=== PATIENT | male | born 1995 | race Caucasian/White ===

== ENCOUNTER 2022-09-20 12:35 | Day surgery (SDC) | payer BC, SELFPAY ==
[2022-09-20] VITALS (8 sets, daily range): BP systolic 129–151; BP diastolic 57–82; PULSE 85–103; RESP 14–25; TEMP 36.7–37.2; O2SAT 87–100; BMI 29.5
--- NOTE | 2022-09-20 | PATH_ITS ---
[facility] Accession Number: [id number] No. of containers..01 Tissue . 01 Material submitted: . appendix - APPENDIX . 01 Diagnosis: Appendix, Appendectomy: Acute appendicitis and periappendicitis. [facility] 09/24/2022 1013 Local . 01 Electronically signed: . Jane Anthony MD, Pathologist NPI- [id number] . 01 Gross description: . The specimen is received in formalin labeled with the patient's name, , and appendix consists of a vermiform appendix measuring 6.4 cm in length by 1.3 cm in diameter with a red-brown external surface with gamez adherent material consistent with exudate. The margin is received closed with jennifer, which are removed, and the margin is inked blue while the remaining external surface is inked orange. The lumen contains a small amount of brown semi-solid fecal material and averages 0.3 m in diameter. The lazo have multiple diverticula measuring up to 0.7 cm in greatest dimension with the largest containing mucoid material. Two areas of possible perforations are identified with no discrete lesions. Topology Teacher sections to include the margin, one-half of the bisected distal tip, mucoid diverticula, and two possible perforations are submitted in cassettes A1-A2. ([id number]) /MRV 09/22/2022 1527 Local . 01 Pathologist provided ICD-10: K35.80 . 01 CPT . 257712 Specimen Comment: A courtesy copy of this report has been sent to [phone] Performed at: [address] [facility], [place], [place] [id number] MD Aj Carver MD Phone: [phone]
--- NOTE | 2022-09-20 12:46 | ED.ABDPAIN ---
HPI - Abdominal Pain General Chief Complaint: Abdominal Pain Stated Complaint: abd lower right pain T-3 Time Seen by Provider: 09/20/22 12:46 Source: patient Mode of arrival: Ambulatory History of Present Illness HPI narrative: 27-year-old male nonsmoker with no chronic medical history presents with a chief complaint of gradually worsening right lower quadrant pain over the past 3 days. He states initially there was gradual onset and generalized abdominal discomfort and over the past few days the pain has migrated to the right lower quadrant and is much more intense and persistent. He denies fever or chills. He is nauseated and has developed a poor appetite. He has not eaten since yesterday because he is just not hungry. His pain is worse when he moves and improves with rest. He denies dysuria, frequency or urgency. He denies change in bowel habits. He denies any history of the same. He has never had an abdominal surgery. Related Data Allergies Allergy/AdvReac Type Severity Reaction Status Date / Time No Known Drug Allergies Allergy Verified 09/20/22 12:44 Review of Systems Review of Systems Narrative: GENERAL: see HPI HEENT: Denies sinus pain, ear pain, sore throat, difficulty swallowing, dizziness. RESPIRATORY: Denies dyspnea, cough, wheezing, hemoptysis, sputum. CARDIOVASCULAR: Denies chest pain, palpitations, orthopnea, edema, GASTROINTESTINAL: see HPI : Denies dysuria, frequency, incontinence, hematuria, urinary retention. MUSCULOSKELETAL: denies weakness, joint pain, or bony pain SKIN: Denies rash, skin lesions, or other NEUROLOGIC: Denies weakness, headache, numbness, change in speech, confusion, seizures, incoordination. PSYCHIATRIC: No concerning psychosocial issues. Patient History Social History Smoking Status: Never smoker Smoking Status: Never smoker alcohol intake frequency: a few times a month Substance Use Type: does not use Exam Narrative Exam Narrative: GENERAL: [27] year old patient appears stated age. Well-developed patient, in mild distress. obviously uncomfortable HEAD: Atraumatic. Normocephalic. EYES: Pupils equal round and reactive. Extraocular motions intact. No scleral icterus. No injection or drainage. ENT: Nose without bleeding, purulent drainage. Throat without erythema, tonsillar hypertrophy or exudate. Airway patent. NECK: Trachea midline. Non tender CARDIOVASCULAR: Regular rate and rhythm without murmurs, gallops, or rubs. RESPIRATORY: Clear to auscultation. Breath sounds equal bilaterally. No wheezes, rales, or rhonchi. GASTROINTESTINAL: Abdomen soft, significant tenderness in the right lower quadrant with localized peritonitis, no rebound, bowel sounds slightly decreased. Negative heel tap or obturator , positive Rovsing's EXTREMITIES: No edema or joint tenderness. BACK: Nontender without deformity or crepitance. No flank tenderness. NEURO: AOx3. SKIN: No rash or erythema of visible areas Initial Vital Signs Initial Vital Signs: Vital Signs Temperature 99.0 F 09/20/22 12:42 Pulse Rate 102 H 09/20/22 12:42 Respiratory Rate 18 09/20/22 12:42 Blood Pressure 143/82 H 09/20/22 12:42 Pulse Oximetry 98 09/20/22 12:42 Oxygen Delivery Method Room Air 09/20/22 12:42 Course Orders Ordered: ED Orders 09/20/22 12:47 CT abdomen pelvis w con Stat 09/20/22 12:55 Complete Blood Count AUTO DIFF Stat Comprehensive Metabolic Panel Stat 09/20/22 13:36 Urine Microscopic Stat Lactated Ringer's (Lactated Ringers) 1,000 mls @ 42 mls/hr IV CONT JOAQUINA Last Admin: 09/20/22 15:36 Dose: 42 mls/hr Documented By: YONY Discontinued Medications Hydromorphone HCl (Hydromorphone 0.5 Mg Inj) 0.5 mg IV NOW ONE Stop: 09/20/22 12:47 Last Admin: 09/20/22 12:53 Dose: 0.5 mg Documented By: MEÑO Hydromorphone HCl (Hydromorphone 1 Mg Inj) 1 mg IV NOW ONE Stop: 09/20/22 13:44 Last Admin: 09/20/22 13:49 Dose: 1 mg Documented By: YONY Sodium Chloride (Normal Saline 0.9%) 1,000 mls @ 1,000 mls/hr IV BOLUS ONE Stop: 09/20/22 13:45 Last Infusion: 09/20/22 14:32 Dose: 0 mls/hr Documented By: Admin: 09/20/22 12:54 Dose: 1,000 mls/hr Documented By: MEÑO Piperacillin Sod/Tazobactam (Sod 4.5 gm/ Sodium Chloride) 100 mls @ 200 mls/hr IV NOW ONE Stop: 09/20/22 14:20 Last Infusion: 09/20/22 15:07 Dose: 0 mls/hr Documented By: Admin: 09/20/22 14:27 Dose: 200 mls/hr Documented By: YONY Ondansetron HCl (Ondansetron 4 Mg/2 Ml Inj) 4 mg IV NOW ONE Stop: 09/20/22 12:47 Last Admin: 09/20/22 14:01 Dose: Not Given Documented By: YONY Vital Signs Vital signs: Vital Signs - 8 hr 09/20/22 12:42 09/20/22 14:09 Temperature 99.0 F Pulse Rate 102 H 100 H Respiratory Rate 18 14 Blood Pressure 143/82 H 151/65 H Pulse Oximetry 98 100 Oxygen Delivery Method Room Air Room Air MDM - Abdominal Pain Lab Data 09/20/22 12:55 09/20/22 12:55 Labs: Lab Results 09/20/22 09/20/22 09/20/22 Range/Units 12:55 12:55 13:36 WBC 15.2 H (4.5-11.0) X10^3/uL RBC 4.75 (4.5-5.9) X10^6/uL Hgb 14.8 (13.5-17.5) g/dL Hct 42.8 (41-53) % MCV 90.1 (80-100) fL MCH 31.2 (26-34) PG MCHC 34.7 (30-36) % RDW 12.8 (11.6-14.8) % Plt Count 290 (150-400) X10^3/uL Neut % (Auto) 75.0 (50-75) % Lymph % (Auto) 14.8 L (25-40) % Mcintosh % (Auto) 9.4 (3-14) % Eos % (Auto) 0.4 L (2-4) % Baso % (Auto) 0.4 (0-2) % Neut # (Auto) 23991 H (3778-1101) /uL Lymph # (Auto) 2300 (5949-0029) /uL Mcintosh # (Auto) 1400 H (0-900) /uL Eos # (Auto) 100 (0-450) /uL Baso # (Auto) 100 (0-100) /uL Sodium 138 (137-145) mmol/L Potassium 3.6 (3.4-5.1) mmol/L Chloride 100 (98-107) mmol/L Carbon Dioxide 26 (22-32) mmol/L BUN 12 (9-20) mg/dL Creatinine 1.05 (0.66-1.25) mg/dL Estimated GFR > 60 (>60) mL/min BUN/Creatinine Ratio 11.4 (6-22) Glucose 96 (70-100) mg/dL Calcium 9.3 (8.4-10.2) mg/dL Total Bilirubin 0.9 (0.2-1.3) mg/dL AST 22 (17-59) IU/L ALT 24 (<50) IU/L Alkaline Phosphatase 74 (38-126) U/L Total Protein 8.2 (6.3-8.2) g/dL Albumin 4.6 (3.5-5.0) g/dL Globulin 3.6 (1.7-4.1) g/dL Albumin/Globulin Ratio 1.3 (1.0-2.8) Urine RBC None seen (0-5/HPF) Urine WBC None seen (0-5/HPF) Ur Squamous Epith Cells None seen (0-5/HPF) Urine Bacteria None seen (None) Ur Culture Indicated? Cult not indicated Micro UA Comment Microscopic normal Point of care testing: Urine Dip Bedside Urine Glucose Negative Bedside Urine Bilirubin - Negative Bedside Urine Ketone +++ 80 Urine Specific [place] 1.005 Bedside Urine Occult Blood - Negative Bedside Urine pH 7.0 Bedside Urine Protein - Negative Bedside Urine Urobilinogen - Negative Bedside Urine Nitrite - Negative Bedside Urine Leukocytes - Negative Esterase MDM Narrative Medical decision making narrative: 27-year-old male with classic presentation of appendicitis with 3 days of worsening right lower quadrant pain, nausea and anorexia. He has localized peritoneal signs and an elevated white blood cell count. Urine is clear abdominal CT demonstrates appendicitis in the absence of perforation, abscess or appendicolith. Patient given fluids, pain control, 1st round of antibiotics. Discussed with on-call General surgery, Dr. Chandra, he will assume care of the patient with likely plan for OR tonight. Patient and family understand and agree with diagnosis and plan Discharge Plan Departure Patient Disposition: Admitted As Inpatient Clinical Impression: Acute appendicitis Admit Date/Time: 09/20/22 14:44 Admit Provider: Micky Chandra
--- NOTE | 2022-09-20 12:47 | DI.CT.S_ITS ---
PROCEDURE: CT ABDOMEN PELVIS W CON INDICATIONS: worsening RLQ pain, anorexia, appy? TECHNIQUE: After the administration of intravenous contrast, axial sections acquired from the lung bases to the pubic symphysis. Coronal and sagittal reformats were performed. For radiation dose reduction, the following was used: automated exposure control, adjustment of mA and/or kV according to patient size. COMPARISON: None. FINDINGS: Image quality: Excellent. Lung bases: Unremarkable. Heart: No significant findings. ABDOMEN: Liver: Unremarkable. Gallbladder: Unremarkable. Biliary ducts: Unremarkable. Pancreas: Unremarkable. Spleen: Unremarkable. Adrenal Glands: Unremarkable. Kidneys and Ureters: Unremarkable. Stomach and Bowel: The appendix is significantly inflamed with wall thickening and overall 1.4 cm diameter. Vigorous periappendiceal phlegmon present without organized abscess. No appendiolith present. Peritoneum: No abnormal intraperitoneal fluid. No free air. Ventral Wall: No hernias. Abdominal Nodes: No retroperitoneal or mesenteric adenopathy by size criteria. Vessels: Aorta and inferior vena cava are normal in size. PELVIS: Pelvic Organs: Unremarkable. Bladder: Unremarkable. Pelvic Nodes: No enlarged lymph nodes. Miscellaneous: No hernias are seen. Bones: Unremarkable. IMPRESSION: Acute appendicitis with vigorous periappendiceal inflammatory change but no evidence of organized abscess or free air. No obstruction. Small amount of reactive free fluid in the pelvis Note: Critical results were discussed with the patient's nurse in the ER at 01:19 PM [place] time on 09/20/22 Approved by: Madi Perez M.D. on 09/20/2022 at 13:20
[2022-09-20] MEDS: HYDROMORPHONE 0.5 MG INJ IV (12:53)
[2022-09-20] MEDS: SODIUM CHLORIDE 0.9% 1,000 ML 1000 ML IV (12:54)
[2022-09-20 13:05] LABS: Add Manual Diff / Slide Review NO; Basophils Absolute Auto 100 /uL (0-100); Basophils Percent Auto 0.4 % (0-2); Eosinophils Absolute Auto 100 /uL (0-450); Eosinophils Percent Auto 0.4 % (2-4); Hematocrit 42.8 % (41-53); Hemoglobin 14.8 g/dL (13.5-17.5); Lymphocytes Absolute Auto 2300 /uL (1100-4500); Lymphocytes Percent Auto 14.8 % (25-40); Mean Corpuscular HGB Conc 34.7 % (30-36); Mean Corpuscular Hemoglobin 31.2 PG (26-34); Mean Corpuscular Volume 90.1 fL (80-100); Monocytes Absolute Auto 1400 /uL (0-900); Monocytes Percent Auto 9.4 % (3-14); Neutrophils Absolute Auto 11300 /uL (1500-7000); Platelet Count 290 X10^3/uL (150-400); Red Blood Cell Count 4.75 X10^6/uL (4.5-5.9); Red Cell Distribution Width 12.8 % (11.6-14.8); White Blood Cell Count 15.2 X10^3/uL (4.5-11.0)
[2022-09-20 13:22] LABS: Alanine Aminotransferase 24 IU/L (<50); Albumin 4.6 g/dL (3.5-5.0); Albumin Globulin Ratio 1.3 (1.0-2.8); Alkaline Phosphatase 74 U/L (38-126); Aspartate Aminotransferase 22 IU/L (17-59); BUN Creatinine Ratio 11.4 (6-22); Bilirubin Total 0.9 mg/dL (0.2-1.3); Blood Urea Nitrogen 12 mg/dL (9-20); Calcium 9.3 mg/dL (8.4-10.2); Carbon Dioxide 26 mmol/L (22-32); Chloride 100 mmol/L (98-107); Estimated Glomerular Filt Rate > 60 mL/min (>60); Globulin 3.6 g/dL (1.7-4.1); Glucose 96 mg/dL (70-100); HEMOLYSIS < 15 (0-50); Potassium 3.6 mmol/L (3.4-5.1); Sodium 138 mmol/L (137-145); Total Protein 8.2 g/dL (6.3-8.2)
[2022-09-20] MEDS: HYDROMORPHONE 1 MG INJ IV (13:49)
[2022-09-20 14:19] LABS: Bacteria Urine None Seen; Culture Indicated Urine Cult Not Indicated; RBC Urine None Seen (0-5/HPF); Squamous Epithelial Cell Urine None Seen (0-5/HPF); Urine Comments Microscopic Normal; WBC Urine None Seen (0-5/HPF)
[2022-09-20] MEDS: PIPERACILLIN/TAZO 4.5 GM in SODIUM CHLORIDE 0.9% 100 ML IV (14:27)
[2022-09-20] MEDS: LACTATED RINGERS 1,000 ML 42 ML IV ×2 (15:36→17:57)
--- NOTE | 2022-09-20 15:57 | SUR.OPER ---
Supine on padded OR bed, head on pillow, arms padded and tucked at sides, legs uncrossed, safety belt at thigh, tape over blanket over lower legs .
--- NOTE | 2022-09-20 16:07 | P.HP_ITS ---
History of Present Illness History of Present Illness Date Patient Seen: 09/20/22 Time Patient Seen: 16:07 Chief complaint: abd lower right pain T-3 Narrative: 27-year-old healthy man admitted for acute appendicitis. Developed abdominal pain generalized in the epigastric region 2 days ago. It is migrated now down to the right lower quadrant. Presented to the emergency department at [facility] today where he was afebrile mildly tachycardic white blood cell count 15 the remainder of his laboratories are within normal limits. CT abdomen pelvis demonstrates a inflamed appendix dilated with periappendiceal stranding no abscess or free air. No prior abdominal surgery. [facility] Social History household members: spouse Smoking Status: Never smoker Meds Home Medications and Allergies Home Medications Medication Instructions Recorded Confirmed Type acetaminophen 325 mg capsule 650 mg PO QID PRN pain #60 caps 09/20/22 Rx (Tylenol) ibuprofen 200 mg tablet 400 mg PO Q6H #60 tabs 09/20/22 Rx oxycodone 5 mg tablet 5 mg PO Q6H PRN pain #10 tabs 09/20/22 Rx Allergies Allergy/AdvReac Type Severity Reaction Status Date / Time No Known Drug Allergies Allergy Verified 09/20/22 16:06 Exam Vital Signs (past 8 hours): - 09/20/22 12:42 09/20/22 14:09 09/20/22 16:00 Temperature 99.0 F 98.4 F Pulse Rate 102 H 100 H 103 H Respiratory Rate 18 14 16 Blood Pressure 143/82 H 151/65 H 145/75 H Pulse Oximetry 98 100 98 Oxygen Delivery Method Room Air Room Air Room Air Oxygen Delivery Method Room Air Narrative Exam Narrative: General adult man alert oriented no acute distress Chest nonlabored respiration Abdomen tender right lower quadrant. No peritonitis Extremities warm well perfused. Objective Labs 09/20/22 12:55 09/20/22 12:55 Labs: Laboratory Results - last 24 hr 09/20/22 09/20/22 09/20/22 12:55 12:55 13:36 WBC 15.2 H RBC 4.75 Hgb 14.8 Hct 42.8 MCV 90.1 MCH 31.2 MCHC 34.7 RDW 12.8 Plt Count 290 Neut % (Auto) 75.0 Lymph % (Auto) 14.8 L [place] % (Auto) 9.4 Eos % (Auto) 0.4 L Baso % (Auto) 0.4 Neut # (Auto) 37571 H Lymph # (Auto) 2300 [place] # (Auto) 1400 H Eos # (Auto) 100 Baso # (Auto) 100 Sodium 138 Potassium 3.6 Chloride 100 Carbon Dioxide 26 BUN 12 Creatinine 1.05 Estimated GFR > 60 BUN/Creatinine Ratio 11.4 Glucose 96 Calcium 9.3 Total Bilirubin 0.9 AST 22 ALT 24 Alkaline Phosphatase 74 Total Protein 8.2 Albumin 4.6 Globulin 3.6 Albumin/Globulin Ratio 1.3 Urine RBC None seen Urine WBC None seen Ur Squamous Epith Cells None seen Urine Bacteria None seen Ur Culture Indicated? Cult not indicated Micro UA Comment Microscopic normal Assessment & Plan Assessment and plan (1) Acute appendicitis: Status: Acute Assessment & Plan narrative: 27-year-old healthy man with symptoms and radiographic findings consistent with acute appendicitis. I reviewed his CT abdomen pelvis personally which demonstrates an inflamed dilated appendix without abscess. We discussed management including medical therapy with antibiotic or surgical intervention. Following discussion he likes to proceed with laparoscopic appendectomy. Overview of the operation was discussed. Operative risks including infection, hemorrhage, damage to surrounding structures, conversion to open discussed. Questions have been answered he is in agreement with this plan. He provides his written and verbal consent to proceed.
--- NOTE | 2022-09-20 16:10 | PM.OP.1 ---
Operative Date/Time/Diagnoses Date of procedure: 09/20/22 Time of procedure: 16:10 Pre-op diagnosis: Acute appendicitis Post-op diagnosis: same Procedure & Clinicians Procedure: Laparoscopic appendectomy Same procedure as scheduled: Yes Indications: 27-year-old man with symptoms and radiographic findings consistent with acute uncomplicated appendicitis. Surgeon: Micky Chandra Click Yes if Unassisted: Yes Anesthesia Type: General Operative Notes Findings: Acutely inflamed appendix non perforated. Specimen(s): other (Appendix) Estimated Blood Loss (mL): 20 Procedure in detail: Patient was brought to the operating room placed supine on the table. Bilateral lower extremity compression devices were applied. Anesthesia was induced and they intubated with an endotracheal tube. They received 3.375 g of Zosyn prior to skin incision. The left arm was tucked and appropriately padded. They were prepped and draped in sterile fashion. Time-out was performed. An infraumbilical incision was made the umbilical stalk was grasped and elevated and incision was made and the abdomen was entered atraumatically. A 12 mm balloon trocar was then placed through the incision and pneumoperitoneum of 14 mm Hg was established. The scope was then inserted and the abdomen inspected, there was no evidence of injury upon entry. Two 5 mm ports were placed under direct visualization, one in the left lower quadrant and second in the lower midline. A thorough laparoscopic evaluation was performed inspecting all four quadrants. There was a small amount of fluid within the right lower quadrant. The tip of the appendix was observed and it was significantly inflamed and with surrounding phlegmon no abscess. The patient was then tilted right side up. The small bowel was then swept to the upper aspect of the abdomen. The tenie were followed to the base of the cecum where the appendix was identified. The base of the appendix was healthy. The appendix was was mobilized from its lateral attachments. It was acutely inflamed but not perforated. The appendix was grasped and a window within the mesentery was made at the base of the appendix using the [place] dissector with care to avoid injuring the cecum. The mesoappendix was then divided using the endo-stapler with a staple length of 2.5 mm-white load. The mesenteric staple line was inspected for hemostasis. The appendix was then amputated flush at the cecum using the endo-stapler blue load. The specimen was retrieved using a endoscopic retrieval bag through the 10 mm infra-umbilical port. The right paracolic gutter and the pouch of James were irrigated The 5 mm ports were then removed under direct visualization. The umbilical fascial incision was closed with 0 Vicryl in a figure-eight fashion. The skin wounds were irrigated and closed with 4-0 Monocryl followed by the application of Dermabond. Sponge instrument count at the end of the operation was correct. The patient tolerated procedure well was extubated and transferred to the postoperative care unit in stable condition. Complications: none Post-operative Condition: stable Disposition: same day surgery
[2022-09-20] MEDS: BUPIVACAINE 0.25% (PF) VIAL 30 ML INJ (16:45)
[2022-09-20] MEDS: OXYCODONE IR 5 MG TABLET PO ×2 (18:11→18:53)
[2022-09-20] MEDS: ONDANSETRON 4 MG/2 ML INJ IV (18:11)
--- NOTE | 2022-09-20 18:41 | SUR.PHASEII ---
Patient continues to have moderate amount of bleeding from umbilical site. Called Dr Chandra to return to evaluate. Dr Chandra at bedside to assess. at bedside. All discharge instructions reviewed with .
--- NOTE | 2022-09-20 19:09 | SUR.PHASEII ---
Instructed patient not to take any NSAIDS for the next 24 hours due to oozing from umbilical site.
== END 2022-09-20 19:10 | disposition home or self-care (01) ==
LOC: ED 14:40 → AC 15:30 → OR 09-21 08:25
PROVIDERS: Emergency Provider Emergency Medicine; Referring Provider Emergency Medicine; Visit Provider Surgery
PROC: 0DTJ4ZZ Resection of Appendix, Percutaneous Endoscopic Approach (ICD-10-PCS; CPT 44970; principal; 2022-09-20 16:00)
DX: K35.80 Unspecified acute appendicitis (principal)
CPT/HCPCS: 44970; 36415; 74177; 80053; 81003; 81015; 85025; 96361; 96365; 96375; 96376; 99222; 99284; J1100; J1170; J1885; J2250; J2405; J2543; J2704; J3010; J3490; Q9967